=== PATIENT | male | born 1950 | race Caucasian/White ===

== ENCOUNTER 2020-12-05 16:18 | Day surgery (SDC) | payer OTHER ==
[2020-12-05] MEDS ORDERED: Phenylephrine 2.5% Ophth Soln 5 ML BOT FS SCH (17:00)
[2020-12-05] MEDS ORDERED: Cyclopentolate 1% Opth Drop 2 ML BOT FS SCH (17:00)
[2020-12-05] MEDS ORDERED: Fluorouracil 100 MG, Enoxaparin Sodium 25 MG, EPINEPHrine 0.3 MG in Ophthalmic Irrigati... IRR SCH (17:00)
[2020-12-05] MEDS ORDERED: Cyclopentolate 1% Opth Drop 2 ML BOT ONE (17:12)
[2020-12-05] MEDS ORDERED: Phenylephrine 2.5% Ophth Soln 5 ML BOT ONE (17:12)
[2020-12-05 17:59] LABS: SARS-CoV-2 NAA Rapid Test Not Detected (NotDetected)
[2020-12-05] MEDS ORDERED: Fentanyl 100 MCG/2 ML VIAL ONE (19:01)
[2020-12-05] MEDS ORDERED: Midazolam HCl 2 mg/2 ml Vial ONE (19:01)
[2020-12-05] MEDS ORDERED: CEFAZOLIN 1 GM VIAL ONE (19:42)
[2020-12-05] MEDS ORDERED: Lidocaine 4% PF 5 ML AMP ONE (19:42)
[2020-12-05] MEDS ORDERED: Lidocaine 1% PF 5 ML VIAL ONE ×2 (19:42)
[2020-12-05] MEDS ORDERED: Triamcinolone 40 MG/ML VIAL ONE (19:42)
[2020-12-05] MEDS ORDERED: Bupivacaine PF 0.75% SDV 10 ML ONE (19:42)
[2020-12-05] MEDS ORDERED: Maxitrol 0.1% Opth Oint 3.5 GM TUBE ONE (19:42)
[2020-12-05] MEDS ORDERED: Dexamethasone 20 MG/5 ML VIAL ONE (19:42)
[2020-12-05] MEDS ORDERED: PROPOFOL 200 MG/20 ML VIAL ONE (19:42)
[2020-12-05] MEDS ORDERED: Ondansetron PF 4 MG/2 ML Vial ONE (19:42)
== END 2020-12-05 22:15 | disposition home or self-care (01) ==
LOC: SDC/OP 16:18
PROVIDERS: ATTEND Ophthalmology Retina Specialist
PROC: 08T53ZZ Resection of Left Vitreous, Percutaneous Approach (ICD-10-PCS; principal; 2020-12-05)
DX: H33.022 Retinal detachment with multiple breaks, left eye (principal); Z88.0 Allergy status to penicillin
CPT/HCPCS: 67025; J0171; J0690; J1100; J1650; J2250; J2405; J2704; J3010; J3301; J3490; J9190; U0002; U0005

== ENCOUNTER 2023-12-27 15:47 | Outpatient (CLI) | payer OTHER ==
[2023-12-27 17:20] LABS: Hematocrit 35.2 % (38.8-50.0); Hemoglobin 12.4 g/dL (13.5-17.5); Mean Corpuscular HGB CONC 35.2 g/dL (32.0-36.0); Mean Corpuscular Hemoglobin 31.2 pg (27.0-33.0); Mean Corpuscular Volume 88.7 fL (81.2-95.1); Mean Platelet Volume 9.4 fL (7.4-10.4); Platelet Count 253 10x3/uL (150-450); RBC Distribution Width 11.9 % (11.5-14.5); Red Blood Cell (RBC) Count 3.97 10x6/uL (4.32-5.72); White Blood Cell (WBC) Count 7.7 10x3/uL (3.5-10.5)
[2023-12-27 17:33] LABS: Anion Gap 16 mmol/L (10-20); BUN (Urea Nitrogen) 57 mg/dL (8.4-25.7); Calc. Creatinine Clearance 0 mL/min (70-130); Calcium 9.1 mg/dL (7.8-10.44); Carbon Dioxide 21 mmol/L (23-31); Chloride 104 mmol/L (98-107); Estimated GFR 8; Glucose 113 mg/dL (83-110); PTT 31.3 sec (22.0-33.0); Potassium 3.6 mmol/L (3.5-5.1); Prothrombin Time 11.3 sec (9.5-12.1); Sodium 137 mmol/L (136-145)
== END 2023-12-27 15:48 | disposition home or self-care (01) ==
LOC: LABBT 15:47
PROVIDERS: ATTEND Urology
DX: Z01.812 Encounter for preprocedural laboratory examination (principal); N32.0 Bladder-neck obstruction; R33.9 Retention of urine, unspecified
CPT/HCPCS: 80048; 85027; 85610; 85730

== ENCOUNTER 2024-01-01 07:42 | Inpatient (IN) | payer OTHER ==
[2023-12-27 16:14] VITALS: BMI 26.4
[2024-01-01] MEDS ORDERED: PROPOFOL 20 ML ONE (09:01)
[2024-01-01] MEDS ORDERED: Lidocaine 1% PF 5 ML VIAL ONE (09:01)
[2024-01-01] MEDS ORDERED: fentaNYL 50 mcg/mL 1 mL Vial ONE ×2 (09:01→10:42)
[2024-01-01] MEDS ORDERED: Ondansetron PF 4 MG/2 ML Vial ONE (10:26)
[2024-01-01] MEDS ORDERED: Dexamethasone 4 mg/ml Vial ONE (10:26)
[2024-01-01] MEDS ORDERED: ePHEDrine Sulfate 50 MG/10 ML VIAL ONE (11:02)
[2024-01-01] MEDS ORDERED: Docusate 100 MG CAP PO PRN (12:36)
[2024-01-01] MEDS ORDERED: Hyoscyamine SL 0.125 MG TAB SL PRN (12:36)
[2024-01-01] MEDS: Dextrose 5%-Lactated Ringers 1,000 ML IV SCH (15:06)
[2024-01-02] MEDS: Cholecalciferol 1,000 UNITS (25 MCG) TAB PO SCH (08:44)
[2024-01-02 15:23] VITALS: BP 166/85; TEMP 98.1
== END 2024-01-02 15:00 | disposition home or self-care (01) | DRG 713 ==
LOC: SDC 07:42 → SURG B 12:36
PROVIDERS: ADMIT Urology; ATTEND Urology
PROC: 3E1N78Z Irrigation of Male Reproductive using Irrigating Substance, Via Natural or Artificial Opening (ICD-10-PCS; principal; 2024-01-01)
PROC: 0VB08ZZ Excision of Prostate, Via Natural or Artificial Opening Endoscopic (ICD-10-PCS; 2024-01-01)
DX: N40.1 Benign prostatic hyperplasia with lower urinary tract symptoms (principal); N13.8 Other obstructive and reflux uropathy; R33.8 Other retention of urine; N18.9 Chronic kidney disease, unspecified; D64.9 Anemia, unspecified; Z88.0 Allergy status to penicillin
CPT/HCPCS: 88305; J1100; J2405; J2704; J3010

== ENCOUNTER 2025-04-10 06:39 | Day surgery (SDC) | payer OTHER ==
[2025-04-09 13:25] VITALS: BMI 28.5
[~2025-04-10 06:39] MED LIST: EPINEPHrine 0.3 MG in Ophthalmic Irrigation Solution 500 ML IRR SCH
[2025-04-10] MEDS ORDERED: Cyclopentolate 1% Opth Drop 2 ML BOT ONE (08:15)
[2025-04-10 08:25] LABS: #Basophils 0.04 10x3/uL (0.0-0.2); #Eosinophils 0.16 10x3/uL (0.0-0.7); #Monocytes 0.80 10x3/uL (0.11-0.59); #Neutrophils 4.50 10x3/uL (1.40-6.50); %Basophils 0.6 % (0.0-1.0); %Eosinophils 2.3 % (0.0-10.0); %Lymphocytes 19.5 % (21.0-51.0); %Monocytes 11.7 % (0.0-10.0); %Neutrophils 65.6 % (42.0-75.0); Hematocrit 39.6 % (42.0-52.0); Hemoglobin 13.1 g/dL (14.0-18.0); Mean Corpuscular Hemoglobin 29.5 pg (27.0-31.0); Mean Corpuscular Volume 89.2 fL (78.0-98.0); Platelet Count 234 10x3/uL (130-400); Red Blood Cell (RBC) Count 4.44 mill/uL (4.70-6.10); White Blood Cell (WBC) Count 6.86 10x3/uL (4.8-10.8)
[2025-04-10] MEDS ORDERED: Famotidine/PF 20 mg/2ml Vial ONE (08:43)
[2025-04-10] MEDS ORDERED: PROPOFOL 20 ML ONE (08:44)
[2025-04-10] MEDS ORDERED: Maxitrol 0.1% Opth Oint 3.5 GM TUBE ONE (09:08)
[2025-04-10] MEDS ORDERED: CEFAZOLIN 1 GM VIAL ONE (09:08)
[2025-04-10] MEDS ORDERED: Lidocaine 1% PF 5 ML VIAL ONE (09:08)
[2025-04-10] MEDS ORDERED: Lidocaine 4% PF 5 ML AMP ONE (09:08)
[2025-04-10] MEDS ORDERED: Ondansetron PF 4 MG/2 ML Vial ONE (09:10)
== END 2025-04-10 12:55 | disposition home or self-care (01) ==
LOC: SDC 06:39
PROVIDERS: ATTEND Ophthalmology Retina Specialist
PROC: 08PK3JZ Removal of Synthetic Substitute from Left Lens, Percutaneous Approach (ICD-10-PCS; principal; 2025-04-10)
PROC: 08B53ZZ Excision of Left Vitreous, Percutaneous Approach (ICD-10-PCS; principal; 2025-04-10)
DX: H59.022 Cataract (lens) fragments in eye following cataract surgery, left eye (principal); H27.02 Aphakia, left eye; N40.0 Benign prostatic hyperplasia without lower urinary tract symptoms; Z79.01 Long term (current) use of anticoagulants; I48.91 Unspecified atrial fibrillation; I12.9 Hypertensive chronic kidney disease with stage 1 through stage 4 chronic kidney disease, or unspecified chronic kidney disease; N18.9 Chronic kidney disease, unspecified
CPT/HCPCS: 85025; 93005; 93010; J0166; J0690; J2704; J3301; J3490; V2632